=== PATIENT | male | born 1975 | race Two or more races ===

== ENCOUNTER 2024-03-23 03:54 | Emergency (ER) | payer BC, SELFPAY ==
[2024-03-23 04:16] VITALS: BP 151/93; PULSE 73; RESP 19; TEMP 36.5; O2SAT 97
--- NOTE | 2024-03-23 04:19 | PD.EDRME ---
Rapid Medical Screening Exam RME Arrival date/time: 03/23/24 03:54 49 year old male present to ED for c/o of epigastric pain for 1 hour I have greeted and performed a focused initial assessment of this patient. A comprehensive ED assessment and evaluation of the patient, analysis of all test results, and completion of the medical decision making process will be conducted by additional ED providers. Chief Complaint: Abdominal Pain Time Seen by Provider: 03/23/24 03:59 Vital signs: Vital Signs Temperature 97.7 F 03/23/24 04:16 Pulse Rate 73 03/23/24 04:16 Respiratory Rate 19 03/23/24 04:16 Blood Pressure 151/93 H 03/23/24 04:16 Pulse Oximetry (%) 97 03/23/24 04:16 Oxygen Delivery Method Room Air 03/23/24 04:16
[2024-03-23] MEDS: MG HYD/AL HYD/SIME (Maalox Reg) SUSP 30 ML UDC PO (04:36)
[2024-03-23 05:02] LABS: Collection Type, Urine Voided
[2024-03-23 05:11] LABS: Basophils % (Auto) 0 % (0-2.5); Eosinophils # (Auto) 0.2 Thou/mm3 (0.0-0.5); Eosinophils % (Auto) 2 % (0-10); Hemoglobin 18.4 g/dL (13.5-16.0); Immature Granulocytes % (Auto) 0 % (0-0); Immature Granulocytes Auto 0.03 Thou/mm3 (0.00-0.00); Lymphocytes # (Auto) 2.7 Thou/mm3 (1.0-4.8); Lymphocytes % (Auto) 30 % (10-50); Mean Corpuscular HGB Conc 36.1 g/dl (31.0-37.0); Mean Corpuscular Hemoglobin 32.7 pg (25.0-35.0); Mean Corpuscular Volume 91 fL (80-100); Monocytes # (Auto) 0.7 Thou/mm3 (0.0-0.8); Monocytes % (Auto) 8 % (0-12); Neutrophils # (Auto) 5.3 Thou/mm3 (1.8-7.7); Neutrophils % (Auto) 60 % (37-80); Nucleated Red Blood Cell % 0 /100 WBC (0); Platelet Count 276 Thou/mm3 (140-440); RDW Standard Deviation 44.2 fL (35.1-43.9); Red Blood Count 5.62 Miln/mm3 (4.50-5.90); White Blood Count 8.9 Thou/mm3 (3.8-10.6)
[2024-03-23 05:13] LABS: Bilirubin,Urine Negative (Negative); Blood,Urine Trace (Negative); Clarity,Urine Clear (Clear/Hazy); Color,Urine Lt-Yellow (Lt Yel-Yel); Glucose, Urine Negative (Negative); Ketones,Urine Negative (Negative); Leukocyte Esterase,Urine Negative (Negative); Nitrite,Urine Negative (Negative); PH,Urine 5.5 (5.0-7.0); Protein,Urine Negative (Neg - Trace); RBC,Urine 2 /hpf (0-3); Specific Gravity,Urine 1.025 (1.001-1.035); Squamous Epithelial Cell,Urine < 1 /hpf (0-5); Urobilinogen,Urine Negative mg/dL (0.0-1.0); WBC,Urine 1 /hpf (0-5)
[2024-03-23 06:07] LABS: Alanine Aminotransferase 32 U/L (10-49); Albumin, Serum 4.8 gm/dL (3.5-5.0); Albumin/Globulin Ratio 1.8 (1.2-2.2); Alkaline Phosphatase 81 U/L (46-116); Anion Gap 7 (7-16); Aspartate Amino Transferase 18 U/L (0-34); BUN/Creatinine Ratio 12 Ratio (12-20); Bilirubin,Total 0.4 mg/dL (0.3-1.2); Blood Urea Nitrogen 12 mg/dL (9-23); Calcium 9.9 mg/dL (8.3-10.6); Calcium (Corrected) 9.9 mg/dL (8.5-10.1); Chloride 104 mMol/L (98-107); Globulin 2.6 gm/dL (2.3-3.5); Glucose 115 mg/dL (74-106); Lipase 58 U/L (12-53); Osmolality,Calculated 276 (275-295); Potassium 3.6 mMol/L (3.4-5.1); Sodium 138 mMol/L (136-145); Total Protein 7.4 gm/dL (5.7-8.2); Troponin I 0.024 ng/mL (0.0-0.045); eGFR > 60 See Note
[2024-03-23 06:33] VITALS: BP 177/105; PULSE 70; RESP 18; TEMP 36.7; O2SAT 97
[2024-03-23 08:12] VITALS: BP 168/105; PULSE 68; RESP 16; TEMP 36.8; O2SAT 97; BMI 39.5
[2024-03-23 08:33] VITALS: BP 158/96
[2024-03-23 10:14] LABS: Lipase 50 U/L (12-53); Troponin I < 0.020 ng/mL (0.0-0.045)
[2024-03-23 11:26] VITALS: BP 158/97; PULSE 61; RESP 16; TEMP 36.6; O2SAT 98
--- NOTE | 2024-03-23 12:04 | EDNOTE_ITS ---
ED Abdominal Pain RME/HPI General Chief Complaint: Abdominal Pain Stated complaint: Abdominal Pain Time seen by provider: 03/23/24 03:59 Arrival date/time: 03/23/24 03:54 RME / HPI RME / HPI narrative: 03/23/24 03:54 49 year old male present to ED for c/o of epigastric pain for 1 hour I have greeted and performed a focused initial assessment of this patient. A comprehensive ED assessment and evaluation of the patient, analysis of all test results, and completion of the medical decision making process will be conducted by additional ED providers. DR. HULL MAIN ED EVALUATION 49 year old male with history of hypertension presents to the ED for complaint of abdominal pain beginning at 03:00 this morning. Described as aching in sensation that is located most to the epigastric region, rating as moderate. Accompanied by nausea. Patient mentioned 4 days ago consulted his PCP for complaint of headache with sinus pressure and was diagnosed with a sinus infection , started on a Zpack with one dose remaining. Denies any history of similar abdominal pain. Denies fevers, chills, chest pain, cough, shortness of breath, vomiting, diarrhea, or urinary symptoms. Related Data Home Medications ?Medication ?Instructions ?Recorded ?Confirmed losartan 100 1 tab PO QDAY 05/30/18 10/26/20 mg-hydrochlorothiazide 25 mg tablet Allergies Allergy/AdvReac Type Severity Reaction Status Date / Time No Known Allergies Allergy Unverified 10/26/20 15:34 Review of Systems Review of Systems Narrative Review of Systems: GEN: No fever, no chills, no weight loss EYES: No discharge, no visual changes, no pain HEENT: No ear pain, no congestion, no sore throat PULM: No shortness of breath, no cough, no congestion CV: No chest pain, no dyspnea on exertion, no palpitations GI: + nausea, no vomiting, no diarrhea, + pain, no constipation : No frequency, no urgency, no dysuria MUSC/SKEL: No joint pain, no back pain SKIN: No rash PSYCH: No hallucinations, no depression HEME/LYMPH: No easy bleeding or bruising tendencies NEURO: No weakness, no headache Past Medical History Past Medical History CARDIAC: Positive Cardiac Disorders and Hypertension GENITOURINARY: Positive Genitourinary Disorders and Benign Prostatic Hyperplasia Family History FAMILY HISTORY: Positive Family Cardiac Disorders; Negative Family Anesthesia Reaction Social History SMOKING STATUS: Never smoker ED Exam Narrative Physical exam: GENERAL: In general the patient is awake, interactive, in an emergency department gurney. HEAD/EYES/EARS/NOSE/THROAT: normo-cephalic, atraumatic, mucus membranes are moist, anicteric, palpebral conjunctiva is pink, trachea is midline. CARDIOVASCULAR: regular rate and regular rhythm, no murmurs, heart sounds are not distant, strong pulses in all four extremities that are equal and symmetric bilateral upper and lower extremities, normal capillary refill. CHEST/PULMONARY: normal chest rise and fall, good air movement, clear to auscultation bilaterally, normal inspiratory to expiratory ratios without evidence of respiratory distress. ABDOMEN: soft, not tender, no masses appreciated BACK: normal range of motion without pain. NEUROLOGICAL: cranio-facial features are symmetric, moves all four extremities equally without obvious limitations or weakness. EXTREMITY: no tenderness to palpation over the long bones or large joints of the bilateral upper and lower extremities, no joint swelling, no joint erythema, no signs of trauma, no unilateral leg swelling and no peripheral edema. SKIN: warm, dry, well-perfused, no jaundice, no rash, no telangiectasias or petechia. PSYCH: calm, cooperative, no evidence of psychosis or agitation Course Quality Measures none Orders Category Date Time Status EKG (ED ONLY) *Do not use* NOW Care 03/23/24 04:19 Completed EKG (ED Only) Stat Exams 03/23/24 04:19 Ordered CBC Stat Lab 03/23/24 04:37 Completed CMP [Comprehensive Metabolic Panel] Stat Lab 03/23/24 04:37 Completed Lipase Stat Lab 03/23/24 04:37 Completed Lipase Stat Lab 03/23/24 09:32 Completed Troponin I Stat Lab 03/23/24 04:37 Completed Troponin I Stat Lab 03/23/24 09:32 Completed UA [Urinalysis] Stat Lab 03/23/24 04:53 Completed Urine Culture Stat Lab 03/23/24 04:53 Received mg Hyd/Al Hyd/Drew Susp [Maalox Susp] Med 03/23/24 04:20 Discontinued 30 ml PO X1 ONE Reevaluation(s) Reevaluation #1: We reviewed all the results, analysis, and plan to perform a lipase and troponin. Time: 08:40 Reevaluation #2: Patient remains clinically stable throughout the emergency department visit. We reviewed all the results, analysis, and treatment plans. Patient is amenable to discharge. Strict return precautions were outlined. Patient was discharged in stable condition. Time: 11:45 Vital Signs Vital signs: Vital Signs Temperature 97.7 F 03/23/24 04:16 Pulse Rate 73 03/23/24 04:16 Respiratory Rate 19 03/23/24 04:16 Blood Pressure 151/93 H 03/23/24 04:16 Pulse Oximetry (%) 97 03/23/24 04:16 Oxygen Delivery Method Room Air 03/23/24 04:16 Pulse ox is 97% on room air which is adequate. Abdominal Pain MDM MDM Narrative MDM Narrative:: Sandra Delgado am scribing for and in the presence of Dr. Hull. Patient data External records reviewed:: [facility] previous records (I reviewed ED visit on 10/26/2020 ) Clinical information provided by:: patient Social determinants that could affect healthcare access:: none Patient has the following chronic illnesses:: HTN How is presenting disease/condition affected by chronic disease/condition?: exacerbated by Evaluation data The following diagnostics were reviewed and interpreted by me:: lab results and EKG tracing(s) (Sinus rhythm, rate 73, no STEMI ) Lab and/or radiology exams considered but not ordered:: None Interpretation Summary: Patients hemoglobin is 18.4 CPM within normal limits UA no signs of infection Medications / Prescriptions Medications or Prescriptions considered but not ordered:: None Medication administrations:: Medication Administration History Discontinued Medications Al Hydrox/Mg Hydrox/Simethicone (Mg Hyd/Al Hyd/Drew (Maalox Reg) Susp 30 Ml Udc) 30 ml PO X1 ONE Stop: 03/23/24 04:21 Last Admin: 03/23/24 04:36 Dose: 30 ml Documented By: SF See above Consultations Consultation(s) initiated? (list below): No Diagnosis Differential diagnosis abdominal pain: abdominal pain, calculus of kidney and gastroenteritis Most likely diagnosis given after review of the tests above:: Acute epigastric pain Admission Indicated Admission indicated?: not indicated Admission Request Was there a request for admission?: No Disposition Plan Disposition Plan: Discharge Discharge Attestation Discharge Attestation: The patient and all family members were given an opportunity to ask questions and understood the discharge instructions. Discharge instructions specifically effects, indications for sooner follow up or return to the emergency department, and the expected course of current diagnosis. Patient condition: Stable Discharge Plan Plan Patient Disposition: HOME (Self Care) Patient condition on transfer: Stable Prescriptions/Referrals Prescriptions/Med Rec: No Action losartan-hydrochlorothiazide 100-25 mg Tablet 1 tab PO QDAY Referrals: BABATUNDE MORGAN [Primary Care Provider] - In 1 week Problem List Clinical Impression: Acute epigastric pain Patient/Caregiver Discharge Instructions Diet Instructions: Stay hydrated with Pedialyte and Gatorade. Education Materials: ED Epigastric Pain (Uncertain Cause) Additional Instructions: Return to the emergency department for worsening symptoms or any other concerns. Please avoid greasy or fatty foods for the next 48 hours. If you should have increasing pain chest return to the emergency department. Print Language: Setswana Stand Alone Forms: Marina Award Info., Patient Portal Info Letter
== END 2024-03-23 12:00 | disposition home or self-care (01) ==
PROVIDERS: Physician Assistant; Emergency Provider Emergency Medicine; PCP Nurse Practitioner Family
DX: R10.13 Epigastric pain (principal); I10 Essential (primary) hypertension
CPT/HCPCS: 36415; 80053; 81001; 83690; 84484; 85025; 87086; 93005; 99283; A9270

== ENCOUNTER → 2024-07-10 | Outpatient (CLI) | payer BC, SELFPAY ==
[2024-07-10 08:22] LABS: Collection Type, Urine Clean Catch; Squamous Epithelial Cell,Urine 0 /hpf (0-5)
[2024-07-10 08:53] LABS: Basophils % (Auto) 0 % (0-2.5); Eosinophils # (Auto) 0.1 Thou/mm3 (0.0-0.5); Eosinophils % (Auto) 2 % (0-10); Hematocrit 45.7 % (41.0-53.0); Hemoglobin 16.1 g/dL (13.5-16.0); Immature Granulocytes % (Auto) 1 % (0-0); Immature Granulocytes Auto 0.04 Thou/mm3 (0.00-0.00); Lymphocytes # (Auto) 2.2 Thou/mm3 (1.0-4.8); Lymphocytes % (Auto) 29 % (10-50); Mean Corpuscular HGB Conc 35.2 g/dl (31.0-37.0); Mean Corpuscular Hemoglobin 32.1 pg (25.0-35.0); Mean Corpuscular Volume 91 fL (80-100); Monocytes # (Auto) 0.5 Thou/mm3 (0.0-0.8); Monocytes % (Auto) 7 % (0-12); Neutrophils # (Auto) 4.7 Thou/mm3 (1.8-7.7); Neutrophils % (Auto) 62 % (37-80); Nucleated Red Blood Cell % 0 /100 WBC (0); Platelet Count 275 Thou/mm3 (140-440); RDW Standard Deviation 45.3 fL (35.1-43.9); Red Blood Count 5.01 Miln/mm3 (4.50-5.90); White Blood Count 7.5 Thou/mm3 (3.8-10.6)
[2024-07-10 08:57] LABS: Glucose Estimated Average 100 mg/dL (80-131); Hemoglobin A1C 5.1 % Hgb (4.8-6.0)
[2024-07-10 08:58] LABS: Prostate Specific Antigen 2.21 ng/mL (0-4.00)
[2024-07-10 09:00] LABS: Bilirubin,Urine Negative (Negative); Blood,Urine Negative (Negative); Clarity,Urine Clear (Clear/Hazy); Color,Urine Yellow (Lt Yel-Yel); Culture Indicated,Urine Not Indicated; Glucose, Urine Negative (Negative); Ketones,Urine Negative (Negative); Leukocyte Esterase,Urine Negative (Negative); Nitrite,Urine Negative (Negative); PH,Urine 5.5 (5.0-7.0); Protein,Urine Negative (Neg - Trace); RBC,Urine 3 /hpf (0-3); Specific Gravity,Urine 1.031 (1.001-1.035); Urobilinogen,Urine Negative mg/dL (0.0-1.0); WBC,Urine < 1 /hpf (0-5)
[2024-07-10 09:09] LABS: Alanine Aminotransferase 33 U/L (10-49); Albumin, Serum 4.6 gm/dL (3.5-5.0); Albumin/Globulin Ratio 2.1 (1.2-2.2); Alkaline Phosphatase 77 U/L (46-116); Anion Gap 8 (7-16); Aspartate Amino Transferase < 10 U/L (0-34); BUN/Creatinine Ratio 20 Ratio (12-20); Bilirubin,Total 0.5 mg/dL (0.3-1.2); Blood Urea Nitrogen 20 mg/dL (9-23); Calcium 9.5 mg/dL (8.3-10.6); Calcium (Corrected) 9.5 mg/dL (8.5-10.1); Carbon Dioxide 27.1 mMol/L (20.0-31.0); Chloride 107 mMol/L (98-107); Globulin 2.2 gm/dL (2.3-3.5); Glucose 118 mg/dL (74-106); Osmolality,Calculated 286 (275-295); Potassium 4.8 mMol/L (3.4-5.1); Sodium 142 mMol/L (136-145); Total Protein 6.8 gm/dL (5.7-8.2); eGFR > 60 See Note
== END | disposition home or self-care (01) ==
PROVIDERS: PCP Nurse Practitioner Family; Referring Provider Nurse Practitioner Family; Visit Provider Nurse Practitioner Family
DX: Z00.00 Encounter for general adult medical examination without abnormal findings (principal); Z13.29 Encounter for screening for other suspected endocrine disorder; Z13.0 Encounter for screening for diseases of the blood and blood-forming organs and certain disorders involving the immune mechanism; R10.9 Unspecified abdominal pain; E03.9 Hypothyroidism, unspecified; N39.0 Urinary tract infection, site not specified; N40.1 Benign prostatic hyperplasia with lower urinary tract symptoms; R97.21 Rising PSA following treatment for malignant neoplasm of prostate
CPT/HCPCS: 36415; 80053; 81001; 83036; 84153; 85025

== ENCOUNTER → 2024-07-13 | Outpatient (CLI) | payer BC, SELFPAY ==
[2024-07-17 06:31] LABS: Fecal Globin Result NOT DETECTED (NOT DETECTED)
== END | disposition home or self-care (01) ==
LOC: SLDO 16:00
PROVIDERS: PCP Nurse Practitioner Family; Referring Provider Nurse Practitioner Family; Visit Provider Nurse Practitioner Family
DX: Z00.00 Encounter for general adult medical examination without abnormal findings (principal); Z13.29 Encounter for screening for other suspected endocrine disorder; Z13.0 Encounter for screening for diseases of the blood and blood-forming organs and certain disorders involving the immune mechanism; Z12.5 Encounter for screening for malignant neoplasm of prostate; R10.9 Unspecified abdominal pain; E03.9 Hypothyroidism, unspecified; N39.0 Urinary tract infection, site not specified
CPT/HCPCS: 82274; G0328

== ENCOUNTER 2024-09-01 10:40 | Day surgery (SDC) | payer BC, SELFPAY ==
[2024-08-31 10:04] VITALS: BMI 40.9
[2024-08-31 11:25] LABS: Basophils % (Auto) 0 % (0-2.5); Eosinophils # (Auto) 0.1 Thou/mm3 (0.0-0.5); Eosinophils % (Auto) 2 % (0-10); Hematocrit 44.5 % (41.0-53.0); Hemoglobin 16.1 g/dL (13.5-16.0); Immature Granulocytes % (Auto) 0 % (0-0); Immature Granulocytes Auto 0.03 Thou/mm3 (0.00-0.00); Lymphocytes # (Auto) 2.5 Thou/mm3 (1.0-4.8); Lymphocytes % (Auto) 34 % (10-50); Mean Corpuscular HGB Conc 36.2 g/dl (31.0-37.0); Mean Corpuscular Hemoglobin 32.8 pg (25.0-35.0); Mean Corpuscular Volume 91 fL (80-100); Monocytes # (Auto) 0.5 Thou/mm3 (0.0-0.8); Monocytes % (Auto) 7 % (0-12); Neutrophils # (Auto) 4.2 Thou/mm3 (1.8-7.7); Neutrophils % (Auto) 57 % (37-80); Nucleated Red Blood Cell % 0 /100 WBC (0); Platelet Count 280 Thou/mm3 (140-440); RDW Standard Deviation 42.3 fL (35.1-43.9); Red Blood Count 4.91 Miln/mm3 (4.50-5.90); White Blood Count 7.4 Thou/mm3 (3.8-10.6)
[2024-08-31 12:16] LABS: Alanine Aminotransferase 29 U/L (10-49); Albumin, Serum 4.4 gm/dL (3.5-5.0); Anion Gap 7 (7-16); Aspartate Amino Transferase 17 U/L (0-34); BUN/Creatinine Ratio 13 Ratio (12-20); Bilirubin,Total 0.5 mg/dL (0.3-1.2); Blood Urea Nitrogen 13 mg/dL (9-23); Calcium 9.2 mg/dL (8.3-10.6); Carbon Dioxide 29.3 mMol/L (20.0-31.0); Chloride 103 mMol/L (98-107); Estimated Creatinine Clearance 107.7 mL/min (>60); Glucose 128 mg/dL (74-106); Osmolality,Calculated 279 (275-295); Potassium 3.9 mMol/L (3.4-5.1); Sodium 139 mMol/L (136-145); Total Protein 6.9 gm/dL (5.7-8.2); eGFR > 60 See Note
[2024-08-31 12:17] LABS: Albumin/Globulin Ratio 1.8 (1.2-2.2); Alkaline Phosphatase 75 U/L (46-116); Calcium (Corrected) 9.2 mg/dL (8.5-10.1); Globulin 2.5 gm/dL (2.3-3.5)
[2024-09-01] VITALS (7 sets, daily range): BP systolic 128–146; BP diastolic 79–89; PULSE 64–71; RESP 14–22; TEMP 36.3–37.1; O2SAT 95–100; BMI 41.6
[2024-09-01] MEDS: RINGERS LACTATED 1000 ML 1,000 ML 20 ML IV (11:23)
--- NOTE | 2024-09-01 13:05 | ESOP_ITS ---
Date of Procedure 09/01/24 Pre Op Diagnosis Symptomatic cholelithiasis Post Op Diagnosis Cholelithiasis with cholecystitis Procedure Laparoscopic cholecystectomy Findings Moderately distended gallbladder with gallstones and chronic cholecystitis. Minimally enlarged liver with fatty in appearance Procedure Description Patient was brought into the operating room in supine position. After administration of general endotracheal anesthesia abdomen was prepped and draped in standard surgical manner. A Veress needle was inserted through the umbilicus and pneumoperitoneum was obtained up to 15 mmHg. The Veress needle was then removed, a 5 mm infraumbilical incision was made and the 5mm trocar was inserted. Laparoscopic camera was placed. Under direct visualization a laparoscopic camera a 10 mm trocar was placed in subxiphoid and two 5 mm trocars placed in right upper quadrant. The liver was mildly enlarged and fatty in appearance. The gallbladder was identified and was noted to be moderately distended with gallstones and chronic cholecystitis. It was retracted cephalad and laterally. Dissection started near the infundibulum of gallbladder where cystic duct and gallbladder junction clearly identified. The cystic duct was circumferentially dissected off the peritoneum and surrounding inflammatory tissue. The critical view of safety was clearly demonstrated. Cystic duct was then divided between 2 endoclips proximally and one distally. The cystic artery was similarly dissected and divided. The gallbladder was then from the liver bed using electrocautery. The gallbladder was then placed inside an Endo Catch and removed from the abdomen utilizing subxiphoid trocar site. The area was copiously and thoroughly washed and irrigated, all the fluid was suctioned and the suction fluid returned clear. Hemostasis achieved using electrocautery. Endoclips noted be in place and intact without any bleeding or any leakage. Hemostasis was adequate and satisfactory. The subxiphoid trocar sites fascial defect was closed with 0 Vicryl using Endo Closure device. Instruments and trocars removed, pneumoperitoneum was evacuated and the incisions closed with 4-0 Monocryl in subcuticular fashion. Instrument needle and sponge counts were all reported to be correct X2. Patient tolerated the procedure well, was extubated, breathing spontaneously and without difficulty and was transferred to postanesthesia care in stable condition. Anesthesia GETA and local Pathology / specimen Other (Gallbladder and contents) Estimated Blood Loss 10 Condition Stable Disposition PACU Surgeon Erick Patricio MD Surgical Staff Operation Date: 09/01/24 14:30 Case Staff CLINICAL DOCUMENTATION SPEC: Tha Jacobo pack train driver: Kita Decker
--- NOTE | 2024-09-01 13:25 | SUR.PHASEI ---
pt drowsy but arouses to voice, breathing unlabored, dressing to abdomen clean, dry, and intact with dermabond x4, report from Romy RN
[2024-09-01] MEDS: fentaNYL CIT INJ 50 mCg/ML AMP 2ML IV ×2 (13:34→13:56)
[2024-09-01] MEDS: ACETAMINOPHEN IVPB 1,000 MG/100 ML VIAL 250 MG IV (13:40)
--- NOTE | 2024-09-01 13:40 | SUR.PHASEI ---
pt tolerating ice chips without difficulty swallowing or n/v
--- NOTE | 2024-09-01 14:29 | SUR.PHASEII ---
pt awake, alert, able to follow commands, breathing unlabored, dressing to abdomen clean, dry, and intact with dermabond x4, pt able to ambulate to bathroom to void with steady gait, discharge instructions given with significant other present-all questions answered, pt discharged via wheelchair with all belongings and copies of discharge paperwork.
--- NOTE | 2024-09-01 18:34 | SUR.PHASEI ---
1309: Pt received in Pacu via gurney. Pt groggy. Easily aroused with eye opening. Resp even, unlabored. VS stable. Surgical sites x4 to abdomen secured with dermabond and dry, clean, intact with no swelling, discoloration. 1325: Pt resting with no complaints voiced. VS stable. Report to Missael BOWERS.
== END 2024-09-01 14:30 | disposition home or self-care (01) ==
PROVIDERS: PCP Nurse Practitioner Family; Referring Provider Surgery; Visit Provider Surgery
PROC: 0FT44ZZ Resection of Gallbladder, Percutaneous Endoscopic Approach (ICD-10-PCS; CPT 47562; principal; 2024-09-01 14:15)
DX: K80.10 Calculus of gallbladder with chronic cholecystitis without obstruction (principal); K76.0 Fatty (change of) liver, not elsewhere classified; I10 Essential (primary) hypertension; Z89.021 Acquired absence of right finger(s); Z79.899 Other long term (current) drug therapy
CPT/HCPCS: 47562; 36415; 80053; 85025; J0131; J0694; J1100; J1885; J2250; J2371; J2405; J2704; J3010; J3490; J7120

== ENCOUNTER → 2024-10-23 | Outpatient (CLI) | payer BC, SELFPAY ==
[2024-10-23 08:54] LABS: Alanine Aminotransferase 30 U/L (10-49); Albumin, Serum 4.4 gm/dL (3.5-5.0); Alkaline Phosphatase 79 U/L (46-116); Anion Gap 12 (7-16); Aspartate Amino Transferase 19 U/L (0-34); BUN/Creatinine Ratio 15 Ratio (12-20); Bilirubin,Total 0.7 mg/dL (0.3-1.2); Blood Urea Nitrogen 15 mg/dL (9-23); Calcium 9.2 mg/dL (8.3-10.6); Calcium (Corrected) 9.2 mg/dL (8.5-10.1); Carbon Dioxide 26.2 mMol/L (20.0-31.0); Cardiac Risk Estimate 3.8 RATIO (4.0-6.7); Chloride 107 mMol/L (98-107); Cholesterol 162 mg/dL (132-200); Globulin 2.2 gm/dL (2.3-3.5); Glucose 118 mg/dL (74-106); HDL Cholesterol 43 mg/dL (40-60); LDL Cholesterol,Calculated 98 mg/dL (0-130); Osmolality,Calculated 290 (275-295); Potassium 4.2 mMol/L (3.4-5.1); Sodium 145 mMol/L (136-145); Total Protein 6.6 gm/dL (5.7-8.2); Triglycerides 105 mg/dL (30-150); eGFR > 60 See Note
--- NOTE | 2024-10-23 08:54 | EKG_ITS ---
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
== END | disposition home or self-care (01) ==
PROVIDERS: PCP Nurse Practitioner Family; Referring Provider Nurse Practitioner Family; Visit Provider Nurse Practitioner Family
DX: R07.9 Chest pain, unspecified (principal); I10 Essential (primary) hypertension
CPT/HCPCS: 36415; 80053; 80061; 93005

== ENCOUNTER 2025-03-22 07:20 | Day surgery (SDC) | payer BC, SELFPAY ==
[2025-03-19 12:39] VITALS: BMI 39.5
[2025-03-22] VITALS (9 sets, daily range): BP systolic 134–154; BP diastolic 78–100; PULSE 66–82; RESP 17–39; TEMP 36.6; O2SAT 91–99; BMI 39.5
[2025-03-22] MEDS: SODIUM CHLORIDE 0.9% 500 ML 500 ML 20 ML IV (08:28)
[2025-03-22] MEDS: MIDAZOLAM INJ 1 MG/ML VIAL 2 ML (ASD USE ONLY) 2 MG IVP (08:28)
[2025-03-22] MEDS: fentaNYL CIT INJ 50 mCg/ML AMP 2ML (ASD USE ONLY) IVP (08:28)
== END 2025-03-22 09:19 | disposition home or self-care (01) ==
PROVIDERS: PCP Family Medicine; Referring Provider Surgery; Visit Provider Surgery
PROC: 0DBE8ZX Excision of Large Intestine, Via Natural or Artificial Opening Endoscopic, Diagnostic (ICD-10-PCS; CPT 45380; principal; 2025-03-22 08:30)
DX: Z12.11 Encounter for screening for malignant neoplasm of colon (principal); D12.0 Benign neoplasm of cecum; K57.30 Diverticulosis of large intestine without perforation or abscess without bleeding; I10 Essential (primary) hypertension; N40.0 Benign prostatic hyperplasia without lower urinary tract symptoms; Z79.899 Other long term (current) drug therapy
CPT/HCPCS: 45380; A4649; J1200; J2250; J3010; J7999